=== PATIENT | female | born 1980 | race Caucasian/White ===

== ENCOUNTER 2018-11-28 23:37 | Emergency (ER) | payer MEDICAID, OTHER ==
[~2018-11-28] VITALS: Ht 160 cm; Wt 47.0 kg
[2018-11-29] MEDS ORDERED: IBUPROFEN 600MG TABLET PO ONE ×2 (01:30→09:30)
[2018-11-29] MEDS ORDERED: ONDANSETRON 4MG ODT PO ONE (09:30)
[2018-11-29 11:07] VITALS: BP 122/85
== END 2018-11-29 11:10 | disposition home or self-care (01) ==
LOC: ER 23:37
DX: S52.502A Unspecified fracture of the lower end of left radius, initial encounter for closed fracture (principal); Y08.89XA Assault by other specified means, initial encounter; Y93.9 Activity, unspecified; Y92.9 Unspecified place or not applicable
CPT/HCPCS: 29105; 73070; 73110; 99284; Q0162; Z7610